=== PATIENT | female | born 1970 | race Caucasian/White ===

== ENCOUNTER 2016-04-02 22:32 | Emergency (ER) | payer OTHER ==
[2016-04-02 22:46] VITALS: RESP 20; TEMP 97.6; O2SAT 98
[2016-04-02] MEDS ORDERED: CEPHALEXIN 250 MG/5 ML BOTTLE PO ONE (22:53)
[2016-04-02] MEDS ORDERED: CEPHALEXIN 250 MG/5 ML BOTTLE ONE (22:55)
[2016-04-02 23:13] VITALS: BP 145/89; PULSE 96
== END 2016-04-02 23:12 | disposition home or self-care (01) | DRG 159 ==
LOC: ED 22:32
DX: K08.89 Other specified disorders of teeth and supporting structures (principal); K12.0 Recurrent oral aphthae
CPT/HCPCS: 99282; 99283

== ENCOUNTER 2016-11-18 12:53 | Emergency (ER) | payer OTHER ==
[2016-11-18 13:02] VITALS: TEMP 99
[2016-11-18 13:15] LABS: BASOPHILS % (AUTO) 1 % (0-3); EOSINOPHILS % (AUTO) 2 % (0-9); HEMATOCRIT 38 % (35-47); MEAN CORPUSCULAR HGB CONC 35.1 gm/dl (32.0-36.0); MEAN CORPUSCULAR VOLUME 88 fL (81-99); MONOCYTES % (AUTO) 3.3 % (0-12); NEUTROPHILS % (AUTO) 45.2 % (37-80)
[2016-11-18 13:34] LABS: POTASSIUM 3.5 mMol/L (3.5-5.1); SODIUM 142 mMol/L (136-145)
[2016-11-18 13:36] LABS: GLOM FILT RATE 84 mL/min (>60)
[2016-11-18 13:49] LABS: CALCIUM 9.6 mg/dl (8.5-10.1)
[2016-11-18] MEDS ORDERED: ALUMINUM/MAGNESIUM 30 ML SUS PO ONE (13:49)
[2016-11-18] MEDS ORDERED: LIDOCAINE HCL 2% (VISCOUS) 20 ML SOL MT ONE (13:49)
[2016-11-18] MEDS ORDERED: ALUMINUM/MAGNESIUM 30 ML SUS ONE (13:51)
[2016-11-18] MEDS ORDERED: LIDOCAINE HCL 2% (VISCOUS) 20 ML SOL ONE (13:51)
[2016-11-18] MEDS ORDERED: KETOROLAC TROMETHAMINE 30 MG/ML SOL IV ONE (14:33)
[2016-11-18] MEDS ORDERED: CYCLOBENZAPRINE 10 MG TAB PO ONE (14:34)
[2016-11-18] MEDS ORDERED: KETOROLAC TROMETHAMINE 30 MG/ML SOL ONE (14:34)
[2016-11-18] MEDS ORDERED: CYCLOBENZAPRINE 10 MG TAB ONE (14:35)
[2016-11-18 14:44] VITALS: BP 137/84; PULSE 74; RESP 12; O2SAT 99
== END 2016-11-18 15:48 | disposition home or self-care (01) | DRG 313 ==
LOC: ED 12:53
DX: R07.89 Other chest pain (principal)
CPT/HCPCS: 36415; 71270; 74170; 80048; 84484; 85025; 85378; 93005; 99284; J1885; Q9967

== ENCOUNTER 2018-08-31 21:53 | Emergency (ER) | payer OTHER ==
[2018-08-31] MEDS ORDERED: SODIUM CHLORIDE 0.9% 1000ML 1,000 ML IV ONE (22:18)
[2018-08-31] MEDS ORDERED: ACETAMINOPHEN 500 MG 500 MG TAB PO ONE (22:34)
[2018-08-31] MEDS ORDERED: ACETAMINOPHEN 500 MG 500 MG TAB ONE (22:35)
[2018-08-31] MEDS ORDERED: APAP/HYDROCODONE 1 EACH TABLET PO ONE (22:40)
[2018-08-31] MEDS ORDERED: APAP/HYDROCODONE 1 EACH TABLET ONE (22:56)
[2018-08-31 23:23] VITALS: BP 157/87; PULSE 73; RESP 18; TEMP 97.7; O2SAT 100
== END 2018-08-31 23:17 | disposition home or self-care (01) | DRG 914 ==
LOC: ED 21:53
DX: S47.1XXA Crushing injury of right shoulder and upper arm, initial encounter (principal); W23.0XXA Caught, crushed, jammed, or pinched between moving objects, initial encounter
CPT/HCPCS: 73070; 73090; 99282; 99283; A9270-GY